=== PATIENT | female | born 1990 | race African-American/Black ===

== ENCOUNTER 2021-01-18 13:49 | Emergency (ER) | payer OTHER, SELFPAY ==
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
--- NOTE | ~2021-01-18 | XR_ITS ---
EXAMINATION: XR ELBOW, LEFT CLINICAL INFORMATION: Pain COMPARISON: None TECHNIQUE: AP, lateral, and oblique views of the left elbow. FINDINGS: The bones and soft tissues are normal. No fracture or joint effusion. Alignment is anatomic. Joint spaces are maintained. XR/XR elbow LT min 3V IMPRESSION: Normal left elbow.
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
[2021-01-18 14:35] VITALS: BP 109/70; BP 117/79; PULSE 100; PULSE 112; RESP 18; TEMP 36.6; O2SAT 100; O2SAT 97; BMI 25.8
[2021-01-18] MEDS: diazePAM 5 MG TABLET 10 MG PO (14:59)
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
[2021-01-18] MEDS: oxyCODONE HCl Immed Release 5 MG TABLET PO (17:00)
== END 2021-01-18 17:06 | disposition home or self-care (01) ==
PROVIDERS: Emergency Provider Emergency Medicine
DX: S06.0X0A Concussion without loss of consciousness, initial encounter (principal); S13.4XXA Sprain of ligaments of cervical spine, initial encounter; S39.012A Strain of muscle, fascia and tendon of lower back, initial encounter; S43.402A Unspecified sprain of left shoulder joint, initial encounter; S63.502A Unspecified sprain of left wrist, initial encounter; S73.101A Unspecified sprain of right hip, initial encounter; S83.91XA Sprain of unspecified site of right knee, initial encounter; S53.402A Unspecified sprain of left elbow, initial encounter; S93.401A Sprain of unspecified ligament of right ankle, initial encounter; V43.53XA Car driver injured in collision with pick-up truck in traffic accident, initial encounter; Y93.89 Activity, other specified; Y92.414 Local residential or business street as the place of occurrence of the external cause; Y99.9 Unspecified external cause status
CPT/HCPCS: 29125; 70150; 70450; 71046; 72100; 72125; 73030; 73080; 73110; 73130; 73502; 73564; 73610; 99284; 99291